=== PATIENT | female | born 1985 | race Hispanic/Latino ===

== ENCOUNTER 2018-03-17 11:47 | Inpatient (IN) | payer SELFPAY ==
[~2018-03-17] VITALS: Ht 149.9 cm; Wt 56.3 kg
[2018-03-17] MEDS ORDERED: SODIUM CHLORIDE 0.9% 1000ML 1,000 ML IV SCH (12:30)
[2018-03-17] MEDS ORDERED: PIPER-TAZ 3.375 GM 50 ML IV ONE (13:00)
[2018-03-17] MEDS: VANCOMYCIN 250MG/5ML ORAL SOLN PO ONE ×2 (14:12→15:54)
--- NOTE | 2018-03-17 15:15 | NUR ---
Pt RLE dressed with a gauze dressing. Copious purulent drainage is coming from the wound. The wound is circular and approximately 1.25 cm in diameter. The wound goes into the deep tissues. Pt is ambulatory to the for a UPT and then to CT scan via W/C. Dressing reinforced while in the CT room.
--- NOTE | 2018-03-17 15:58 | NUR ---
Pt returned to RM3. Dressing is intact. No acute distress is noted. The pt MONTANO, no c/o CP, SOB, dizziness, or nausea.
[2018-03-17] MEDS ORDERED: ONDANSETRON HCL INJ 2MG/ML 2ML 2 MG/ML VIAL IV PRN (16:15)
--- NOTE | 2018-03-17 17:29 | Diagnostic Imaging Report ---
CT Lower extremity right with contrast, with reconstructions. CPT code: 25995, 95757 Indications: Calcinosis cutis, dermatomyositis, abscess. Technique: Contiguous 5 mm thickness axial images were obtained through the right lower extremity from the mid thigh to the distal tibia/fibula diaphyses. 100 cc of intravenous nonionic contrast was administered. Rationale for reconstructions: Coronal and sagittal reconstructions were generated to better facilitate assessment of alignment and extent of fracture lines. RADIATION DOSE: Total DLP: 301 mGy*cm Estimated effective dose: (DLP x 0.015 x size factor) mSv CTDIvol has been reviewed. It is below the limits set by the Radiation Protocol Committee (RPC). Dose reduction techniques used: Automated exposure control, adjustment of the mAs and/or kVp according to patient size, standardized low-dose protocol, and/or iterative reconstruction technique. Comparison: CT left lower extremity 12/21/2016, CT pelvis 07/05 2017, CT pelvis 08/02/2017. MRI left hip 08/11/2017, MRI left hip 04/17/2017. These were performed at [facility]. Findings: [employer] Salesperson image demonstrates extensive soft tissue calcifications throughout the lower extremities with diffuse enlargement of the right lower extremity from the proximal thigh to the proximal lower extremity. Cross-sectional imaging demonstrates extensive subcutaneous calcifications and calcifications of the fascial layers particularly in the posterior thigh. There is no evidence of cellulitis. The posterior aspect of the lower extremity is most severely affected, lateral greater than medial. There is one subcutaneous hyperattenuating collection in the lateral lower extremity at the level of the proximal fibula measuring 2.7 x 1.4 cm containing a droplet of air. Adjacent to this is high attenuating material outside the skin extending onto the CT table suggestive of extruded contents. This particular collection does not appear to be connected to any other of the fascial normal calcifications. There are no other collections that contain air. Vascular structures poorly visualized due to the extensive calcifications in the timing of the contrast bolus. Bones: No fracture or focal osseous lesion. IMPRESSION: 1. Air-containing collection measuring 2.7 cm extending to the skin in the lateral right lower extremity suggestive of abscess. 2. Extensive subcutaneous and fascial soft tissue calcifications consistent with dermatomyositis. Signed by: Dr. Kriss Britton MD on 03/17/2018 5:25 PM
--- NOTE | 2018-03-17 18:40 | NUR ---
pt alert resp even and unlabored at this time no distress noted, pt arrived to unit via stretcher, pt oriented to room and call light, pt bed in lowest position, bed rails up X2, pt able to make need known, call light in reach,. family member at bedside.
[2018-03-17 19:00] VITALS: BP 105/55
[2018-03-17] MEDS: SODIUM CHLORIDE 0.9% 1000ML 1,000 ML IV SCH (19:37)
[2018-03-17] MEDS: PIPER-TAZ 3.375 GM 50 ML IV SCH (19:37)
--- NOTE | 2018-03-17 19:50 | NUR ---
REPORT GIVEN TO ONCOMING NURSE, FOR CONTINUED CARE.
--- NOTE | 2018-03-17 20:00 | NUR ---
Dressing to Right leg soaked with drainage. Dressing changed.
--- NOTE | 2018-03-17 21:19 | NUR ---
Patient had a fever of 101 F and increased Heart rate of [address] Garibay notified. New orders received.
--- NOTE | 2018-03-17 21:19 | NUR ---
Dr. Garibay notified that patient will be NPO after midnight and stated patient can still take oral medication with small sips of water.
--- NOTE | 2018-03-17 21:25 | NUR ---
Consult with Dr. Beck called thru the spray drier operator.
[2018-03-17] MEDS ORDERED: MORPHINE SULFATE INJ 4 MG/ML INJ 1ML IV PRN (21:30)
[2018-03-17] MEDS ORDERED: HYDROCODONE/APAP 5MG-325MG TAB PO PRN (21:30)
[2018-03-17] MEDS ORDERED: VANCOMYCIN 1GM/NS 250 ML 250 ML IV SCH ×2 (21:30→22:00)
--- NOTE | 2018-03-17 22:01 | NUR ---
no answer from dr. zafar at this time
[2018-03-17] MEDS: ACETAMINOPHEN 325 MG TAB PO PRN (22:07)
--- NOTE | 2018-03-17 22:40 | NUR ---
Patient complaint of intching and sob 30 mins after vanco started. Vanco stopped. oxygen 2L/min started. Dr Garibay notified new orders received.
[2018-03-17] MEDS ORDERED: DIPHENHYDRAMINE HCL 25 MG CAP PO ONE (23:00)
[2018-03-17] MEDS ORDERED: PREDNISONE 20 MG TAB PO ONE (23:00)
--- NOTE | 2018-03-17 23:15 | NUR ---
ITCHING RELIEVED, NO SOB. PATIENT REFUSED TO CONTINUE OXYGEN. NO COMPLAINTS AT THIS TIME.
[2018-03-18] VITALS (7 sets, daily range): BP systolic 87–105; BP diastolic 45–59
[2018-03-18] MEDS: SODIUM CHLORIDE 0.9% 1000ML 1,000 ML IV SCH ×3 (00:10→16:58)
--- NOTE | 2018-03-18 00:10 | NUR ---
PATIENT IS AWARE OF NPO DIET AFTER MIDNIGHT.
[2018-03-18] MEDS: PIPER-TAZ 3.375 GM 50 ML IV SCH ×4 (01:00→18:38)
--- NOTE | 2018-03-18 04:49 | NUR ---
DRESSING TO RIGHT LOWER LEG CHANGED.
[2018-03-18 05:55] LABS: BASOPHILS % 0.3 % (0.0-1.0); HEMATOCRIT 31.5 % (34.2-44.1); HEMOGLOBIN 10.1 g/dL (12.0-16.0); LYMPHOCYTES # (AUTO) 0.5 (1.0-3.2); LYMPHOCYTES % 7.4 % (18.0-39.1); MEAN CORPUSCULAR HGB CONC 32.1 g/dL (31-35); MONOCYTES # (AUTO) 0.4 (0.2-0.8); MONOCYTES % 6.2 % (4.4-11.3); NEUTROPHILS # (AUTO) 5.8 (2.1-6.9); NEUTROPHILS % 85.8 % (38.7-80.0); PLATELET COUNT 144 x10e3/uL (140-360); RED BLOOD COUNT 3.89 x10e6/uL (3.6-5.1); RED CELL DISTRIBUTION WIDTH 16.6 % (11.7-14.4)
[2018-03-18 06:11] LABS: INR 1.28; PROTHROMBIN TIME 17.1 seconds (11.9-14.5)
[2018-03-18 06:12] LABS: PARTIAL THROMBOPLASTIN TIME 53.6 seconds (23.8-35.5)
[2018-03-18 06:22] LABS: ALANINE AMINOTRANSFERASE 27 IU/L (0-55); ALBUMIN 2.8 g/dL (3.5-5.0); ALBUMIN/GLOBULIN RATIO 0.8 (0.8-2.0); ALKALINE PHOSPHATASE 49 IU/L (40-150); ANION GAP 12.4 mmol/L (8-16); BLOOD UREA NITROGEN 9 mg/dL (7-26); BUN/CREATININE RATIO 16 (6-25); CALCIUM 8.4 mg/dL (8.4-10.2); CARBON DIOXIDE 20 mmol/L (22-29); CHLORIDE 107 mmol/L (98-107); CREATININE, SERUM 0.56 mg/dL (0.57-1.11); EST GLOMERULAR FILTRATION RATE > 60 ML/MIN (60-); GLUCOSE 118 mg/dL (74-118); POTASSIUM 3.4 mmol/L (3.5-5.1); SODIUM 136 mmol/L (136-145)
--- NOTE | 2018-03-18 06:51 | NUR ---
CALLED THE APRICOT PACKER FOR THE SECOND TIME FOR CONSULT WITH DR TEJADA
--- NOTE | 2018-03-18 07:04 | NUR ---
pt asleep resp even and unlabored at this time, pt easily aroused, pt has family member at bedside, pt no distress noted, call light in reach.
--- NOTE | 2018-03-18 08:55 | NUR ---
CULTURE OF WOUND SENT TO LAB
[2018-03-18] MEDS: LINEZOLID 600 MG/D5W 300ML 300 ML IV SCH ×2 (09:38→21:27)
--- NOTE | 2018-03-18 10:21 | Consultation ---
DATE OF CONSULTATION: March 18, 2018 REFERRING PHYSICIAN: Dr. Garibay. HISTORY OF PRESENT ILLNESS: Patient is a 32-year-old female who has had chronic swelling and pain in her arms and legs. This is going on for a year. She developed more pain in the right leg with open area of drainage about 3 days ago. She was evaluated with CT scan of lower extremity which revealed extensive calcifications within the subcutaneous tissue and fascia of the right thigh and leg with a small area of fluid collection. PAST MEDICAL HISTORY: As above, otherwise was negative. ALLERGIES: SHE HAS AN ALLERGY TO VANCOMYCIN. PAST SURGICAL HISTORY: No previous surgeries. CURRENT MEDICATIONS: None. FAMILY HISTORY: Noncontributory. SOCIAL HISTORY: The patient is . Does not smoke cigarettes or drink alcohol. REVIEW OF SYSTEMS: As stated above. She has not had any fever. PHYSICAL EXAMINATION GENERAL: The patient is awake and alert. VITAL SIGNS: Temperature of 102.8 last night, afebrile now. HEENT: Unremarkable. Sclerae are nonicteric. NECK: No masses. LUNGS: Equal breath sounds are clear bilaterally. CARDIAC: Regular rate and rhythm with no murmur. ABDOMEN: Soft. No tenderness. EXTREMITIES: The area of calcifications with varicose veins in upper extremities and lower extremities. There is considerable swelling of the right thigh and leg with discoloration of proximal right thigh laterally. There is an open area in the right leg below the knee with some purulent drainage and calcifications palpable. Extensive calcifications are palpable in the subcutaneous tissue. Peripheral pulses are palpable 2+. NEUROLOGIC: Grossly intact. 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 Right now, I recommend continuing the patient on IV antibiotics and plan incision and drainage of the abscess to be done in operating room tomorrow. Proposed surgery was explained to the patient including risks, benefits, and alternatives and she understands. She has had the opportunity to ask questions. Thank you for asking me to see Ms. Stone. Job#: [id number] DARRYL
[2018-03-18 10:48] LABS: BAND NEUTROPHILS % (MANUAL) 36 %; LYMPHOCYTES % (MANUAL) 7 % (19-48); MONOCYTES % (MANUAL) 3 % (3.4-9.0); NEUTROPHILS % (MANUAL) 54 % (40-74)
[2018-03-18 10:49] LABS: PLATELET ESTIMATE ADEQUATE; PLATELET MORPHOLOGY COMMENT NORMAL; RBC MORPHOLOGY COMMENT NORMAL
[2018-03-18] MEDS ORDERED: POTASSIUM CHLORIDE 20 MEQ TAB CR PO ONE ×2 (12:00→17:30)
--- NOTE | 2018-03-18 13:02 | NUR ---
Credit Review Manager met with patient at bedside to discuss plan of care with patient/family. CM/SW role and care transitions discussed. Patient lives: with and 3 children Admit/Transfer: Admit POA/Emergency contact: Chuck Stone Current/Previous Home Health: N/A PCP/Follow-up Care: Does not have PCP Current/Previous DME: N/A Other Services: Employment Status: Unemployed Areas of Concerns: patient is Self Pay- No insurance Referral Needs: Education Needs: IMM/NOGUERA given and signed (if applicable): Goal for discharge: Patient states children are being care for by her while in the hospital. Patient states she was independent of all ADL goal prior to hospital admission. She also states she was in the process of applying for health insurance before she was admitted. She also states her children have CHIP. Patient had a previous admission at [facility] in August and she went into a clinic for follow up.
--- NOTE | 2018-03-18 13:43 | History and Physical ---
CHIEF COMPLAINT: Right lower extremity abscess and pain. HISTORY OF PRESENT ILLNESS: This is a 32-year-old female, who has history of multiple abscesses throughout her body. Of note, has no other past medical issues. She comes in to the outside ER with complaints of right lower extremity leg pain with purulent discharge. The patient reports she has been having this right lower extremity swelling ongoing for the last 3 to 4 days. Then suddenly, she had significant amount of pus that was coming out of the right lower leg. She has had multiple abscesses throughout her body in which she was getting most of her care at [facility]. At that time, she reports that she has been getting several antibiotic treatments in the past and has been discharged on several occasions. She does not know the etiology of her multiple abscesses. The patient was seen and evaluated at bedside on the medical floor, currently doing well with no other issues. ID and General Surgery have been consulted. REVIEW OF SYSTEMS Pertinent positives: Right lower extremity abscess with swelling and fever. Pertinent negative: Denies any chest pain, palpitations, nausea, vomiting, diarrhea, dysuria, hematuria, frequency, urgency, lightheadedness, dizziness, abdominal pain, headache, shortness of breath, cough, congestion, fever, or any other complaints. The rest of 14-point of review of systems have been reviewed with the patient and are negative. ALLERGIES: VANCOMYCIN. HOME MEDICATIONS: None. PAST MEDICAL HISTORY: She has had multiple body abscesses requiring incision and drainage in the past with IV antibiotic. SURGICAL HISTORY: She had multiple abscesses with incision and drainage. FAMILY HISTORY: Hypertension and diabetes. SOCIAL HISTORY: No drugs and no alcohol. She does not smoke. Good social support. She is . PHYSICAL EXAM VITAL SIGNS: Temperature 96.6, but T-Max was 102.8, pulse is 88, respiratory rate is 20, blood pressure is 97/55, pulse ox 94% on room air. GENERAL: Not in acute distress, alert and oriented times 3. Cooperative on examination. HEENT: Head is normocephalic and atraumatic. Eyes: Pupils are equal and reactive to light bilaterally. Extraocular movements are intact bilaterally. NECK: Supple. Good range of motion. Throat with no evidence of any erythema or exudates in the posterior pharynx. Has poor dentition. PULMONARY: Clear to auscultation bilaterally. No wheezing. No rales. No rhonchi. No crackles appreciated. CARDIOVASCULAR: Positive S1, S2. No murmurs, rubs, or gallops appreciated. ABDOMEN: Soft, nondistended, and nontender to palpation. Bowel sounds are present. MUSCULOSKELETAL: Strength is 5/5 throughout. No evidence of any musculoskeletal deficit on examination. No weakness appreciated. NEUROLOGICAL: Cranial nerves II through XII are grossly intact. No evidence of any neurological deficits on exam. SKIN: Intact. Warm to touch. EXTREMITIES: The right lower extremity has an extensive abscess on the lateral aspect of the right leg with purulent discharge as described above. LABORATORY DATA: Lab findings show white count of 6.7, hemoglobin 10.1, hematocrit is 32, and platelets of 144. Coagulation; PT is 17, INR 1.28, PTT 53.6. Chemistry; sodium 136, potassium 3.4, chloride 107, bicarb 20, anion gap of 12, BUN is 9, creatinine is 0.56, and glucose is 180, Calcium is 8.4. Total bilirubin is 1.9. AST 27, ALT 27. Albumin was 2.8. MICROBIOLOGY: Blood and wound cultures are all pending. IMAGING STUDIES: CT of the right lower extremity shows air-containing collection measuring 2.7 cm extending to the skin and to the lateral right lower extremity suggestive of an abscess. There is extensive subcutaneous and soft tissue calcification consistent with dermatomyositis. IMPRESSION 1. Sepsis secondary to right lower extremity cellulitis. 2. History of multiple body abscesses. 3. Hypotension secondary to underlying infection. 4. Hypokalemia. PLAN: At this time, the patient will receive IV antibiotics and ID was consulted. General Surgery consulted and will undergo a debridement on Monday March 19, 2018 by Surgery. She is not currently on any home medications. We will put her on Lovenox for DVT prophylaxis, IV fluids for hydration, as well as pain control. I will go ahead and replace her potassium. Continue with same plan of care with no changes. Job#: [id number] DARRYL
--- NOTE | 2018-03-18 15:28 | Consultation ---
DATE OF CONSULTATION: REASON FOR CONSULTATION: Abscess of the leg. HISTORY OF PRESENT ILLNESS: This patient who is a 32-year-old female who have chronic edema of her leg for the last 3 years according to her. The patient comes in with redness and swelling of her right leg. In the emergency room, she had a CAT scan which showed significant calcification of the right thigh with fluid collection. Patient was admitted. Patient apparently received vancomycin yesterday but she had some shortness of breath due to which it was stopped. The patient currently lying in bed comfortably. I was asked to see her from an infectious disease point of view. They are planning for her to have I and D tomorrow. PAST MEDICAL HISTORY: There is swelling of her leg, she does not know why but apparently it has been for some time. REVIEW OF SYSTEMS: Otherwise; HEENT: Negative. PULMONARY: Negative. CARDIAC: Negative. LABORATORY DATA: White count 6.73, hemoglobin 10, hematocrit 34, platelets 144, sodium 136, potassium 3.4, creatinine 0.56. PHYSICAL EXAMINATION GENERAL: She is currently alert, oriented, does not seem to be in acute distress. VITALS: Stable. Currently afebrile. HEENT: She does not appear icteric. NECK: Supple. CHEST: Clear. HEART: S1, S2. No S3, S4, or murmur. ABDOMEN: Soft. No tenderness. No hepatosplenomegaly. EXTREMITIES: The right leg, there is significant swelling and edema. IMPRESSION: Abscess in the leg, going for incision and drainage. PLAN: Allergic reaction to vancomycin. We will change to Zyvox. With probably underlying lymphedema, obtain CT of abdomen and pelvis. Workup as outpatient. We will follow. Job#: [id number] HERBER
[2018-03-18] MEDS: MIDODRINE 2.5 MG TAB PO SCH ×2 (16:00→16:21)
[2018-03-18] MEDS: ENOXAPARIN SOD INJ 40 MG/0.4 ML SYR SC SCH (16:59)
--- NOTE | 2018-03-18 19:25 | NUR ---
REPORT GIVEN TO ONCOMING NURSE, FOR CONTINUED CARE.
[2018-03-18] MEDS: ACETAMINOPHEN 325 MG TAB PO PRN (22:42)
[2018-03-19] VITALS (9 sets, daily range): BP systolic 98–118; BP diastolic 55–62
[2018-03-19] MEDS: SODIUM CHLORIDE 0.9% 1000ML 1,000 ML IV SCH ×3 (00:10→17:58)
[2018-03-19] MEDS: ACETAMINOPHEN 325 MG TAB PO PRN ×2 (04:40→11:05)
--- NOTE | 2018-03-19 04:45 | NUR ---
DRESSING DONE TO RIGHT LEG.
[2018-03-19 05:07] LABS: BASOPHILS % 0.2 % (0.0-1.0); EOSINOPHILS % 0.2 % (0.0-6.0); HEMATOCRIT 26.5 % (34.2-44.1); HEMOGLOBIN 9.2 g/dL (12.0-16.0); LYMPHOCYTES # (AUTO) 0.8 (1.0-3.2); LYMPHOCYTES % 13.5 % (18.0-39.1); MEAN CORPUSCULAR HEMOGLOBIN 27.1 pg (28-32); MEAN CORPUSCULAR HGB CONC 34.7 g/dL (31-35); MEAN CORPUSCULAR VOLUME 78.2 fL (81-99); MONOCYTES # (AUTO) 0.5 (0.2-0.8); MONOCYTES % 8.5 % (4.4-11.3); NEUTROPHILS # (AUTO) 4.3 (2.1-6.9); NEUTROPHILS % 77.1 % (38.7-80.0); PLATELET COUNT 167 x10e3/uL (140-360); RED BLOOD COUNT 3.39 x10e6/uL (3.6-5.1); RED CELL DISTRIBUTION WIDTH 16.8 % (11.7-14.4)
[2018-03-19 05:24] LABS: ANION GAP 13.2 mmol/L (8-16); BLOOD UREA NITROGEN 7 mg/dL (7-26); BUN/CREATININE RATIO 12 (6-25); CALCIUM 9.2 mg/dL (8.4-10.2); CARBON DIOXIDE 22 mmol/L (22-29); CHLORIDE 103 mmol/L (98-107); EST GLOMERULAR FILTRATION RATE > 60 ML/MIN (60-); GLUCOSE 106 mg/dL (74-118); POTASSIUM 4.2 mmol/L (3.5-5.1); SODIUM 134 mmol/L (136-145)
[2018-03-19] MEDS: PIPER-TAZ 3.375 GM 50 ML IV SCH ×5 (05:54→23:30)
[2018-03-19 06:34] LABS: BAND NEUTROPHILS % (MANUAL) 11 %; LYMPHOCYTES % (MANUAL) 13 % (19-48); MONOCYTES % (MANUAL) 4 % (3.4-9.0); NEUTROPHILS % (MANUAL) 72 % (40-74)
[2018-03-19 06:35] LABS: ANISOCYTOSIS SLIGHT; HYPOCHROMASIA SLIGHT; MICROCYTOSIS SLIGHT; PLATELET ESTIMATE ADEQUATE; PLATELET MORPHOLOGY COMMENT NORMAL; RBC MORPHOLOGY COMMENT ABNORMAL
--- NOTE | 2018-03-19 07:15 | NUR ---
received pt lying in bed with eyes open, TV on. Resp even and unlabored. call light within reach. visitor at bedside.
[2018-03-19] MEDS: LINEZOLID 600 MG/D5W 300ML 300 ML IV SCH ×2 (08:26→20:44)
[2018-03-19] MEDS: MIDODRINE 2.5 MG TAB PO SCH ×3 (09:47→18:01)
--- NOTE | 2018-03-19 11:15 | Progress Note ---
DATE: March 19, 2018 MEDICINE PROGRESS NOTE SUBJECTIVE: The patient is scheduled to have a right lower extremity debridement and abscess clean-out later today by general surgery. She continues to be on IV antibiotics. OBJECTIVE VITAL SIGNS: Temperature 99, pulse 107, respiratory rate 18, blood pressure 103/55. She did have a T-max last night of 101.4. LAB FINDINGS: White count 5.5, hemoglobin 9.2, hematocrit 26.5, platelets 167. Chemistries: Sodium 134, potassium 4.2, chloride 103, bicarb 22, anion gap 13, BUN 7, creatinine 0.7, calcium 9.2. Wound culture is still pending. Blood cultures are no growth to date. PHYSICAL EXAMINATION GENERAL: Not in acute distress, alert and oriented x3. Cooperative on examination. HEENT: Head is normocephalic and atraumatic. Eyes: Pupils are equal and reactive to light bilaterally. Extraocular movements are intact bilaterally. NECK: Supple. Good range of motion. Throat with no evidence of any erythema or exudates in the posterior pharynx. Has poor dentition. PULMONARY: Clear to auscultation bilaterally. No wheezing. No rales. No rhonchi. No crackles appreciated. CARDIOVASCULAR: Positive S1, S2. No murmurs, rubs, or gallops appreciated. ABDOMEN: Soft, nondistended, and nontender to palpation. Bowel sounds are present. MUSCULOSKELETAL: Strength is 5/5 throughout. No evidence of any musculoskeletal deficit on examination. No weakness appreciated. NEUROLOGICAL: Cranial nerves II through XII are grossly intact. No evidence of any neurological deficits on exam. SKIN: Intact. Warm to touch. Good capillary refill. PSYCHIATRIC: Normal affect. EXTREMITIES: No edema. Good range of motion. IMPRESSION 1. Sepsis secondary to right lower extremity cellulitis with abscess. 2. History of multiple body abscesses. 3. Hypotension secondary to underlying infection. 4. Hypokalemia. PLAN: At this time, she is scheduled for debridement of the right lower extremity later today. IV antibiotics per ID. Continue with Lovenox for DVT prophylaxis, IV fluids for hydration, and pain control. Job#: [id number]
[2018-03-19] MEDS ORDERED: LIDOCAINE HCL 1% LOCAL INJ 20 ML VIAL ONE (14:26)
[2018-03-19] MEDS ORDERED: BACITRACIN 50,000 UNIT VIAL ONE (15:11)
--- NOTE | 2018-03-19 16:21 | Operative Report ---
DATE OF PROCEDURE: March 19, 2018 PREOPERATIVE DIAGNOSIS: Complex abscess, right leg. POSTOPERATIVE DIAGNOSIS: Complex abscess, right leg. PROCEDURE PERFORMED: Incision and drainage of complex abscess, right leg. WATCH ADJUSTER: None. ANESTHESIA: General. INDICATIONS AND FINDINGS: Patient is a 32-year-old female with purulent drainage from a right leg wound. Workup revealed extensive calcifications in the subcutaneous tissue around the fascia. At surgery, there was a large amount of milky fluid that was drained from between muscles starting in the leg and extending all the way up into the thigh. Approximately 150 mL of this fluid was drained. There were also extensive calcifications involving all the tissues, one area which was biopsied. TECHNIQUE: After adequate general anesthesia, with the patient in the supine position, the right leg was prepped and draped in a sterile fashion with Betadine solution. There was an open wound with what appeared to be purulent drainage. This extended proximally and distally. Additional purulence was drained. There was a large cavity medially in the leg between muscle bellies, and also it was found this large cavity extended up into the thigh with a total of approximately 150 mL of purulent fluid. This fluid was drained. It appeared to be milky, calcified fluid. There were calcifications in the tissues and a portion of the tissues was excised for biopsy. All the fluid collections were drained. The cavities were irrigated with saline. Hemostasis achieved with electrocautery. Then each large cavity was packed open with 1-inch iodoform gauze and a sterile dressing applied. Patient tolerated the procedure well. Estimated blood loss was 30 mL. There were no complications. All counts were correct. Patient was taken to the recovery room in satisfactory condition. Job#: [id number]
[2018-03-19] MEDS: ENOXAPARIN SOD INJ 40 MG/0.4 ML SYR SC SCH (17:58)
[2018-03-19] MEDS ORDERED: LIDOCAINE HCL 2% LOCAL INJ 5 ML SDV VIAL INJ ONE (18:12)
[2018-03-19] MEDS ORDERED: DEXAMETHASONE SOD PHOS INJ 4 MG/ML VIAL ONE (18:12)
[2018-03-19] MEDS ORDERED: ONDANSETRON HCL INJ 2MG/ML 2ML 2 MG/ML VIAL ONE (18:12)
[2018-03-19] MEDS ORDERED: PROPOFOL IV EMULSION 10 MG/ML 20 ML VIAL ONE (18:12)
[2018-03-19] MEDS ORDERED: DESFLURANE 240 ML BTL INH ONE (18:12)
[2018-03-19] MEDS ORDERED: FENTANYL CITRATE/PF 100MCG/2 ML INJ ONE (18:20)
[2018-03-19] MEDS ORDERED: MIDAZOLAM HCL 2 MG/2 ML VIAL ONE (18:20)
[2018-03-20] MEDS: PIPER-TAZ 3.375 GM 50 ML IV SCH ×4 (05:50→23:32)
[2018-03-20] MEDS: SODIUM CHLORIDE 0.9% 1000ML 1,000 ML IV SCH ×3 (05:51→16:10)
--- NOTE | 2018-03-20 05:51 | NUR ---
dressing to RLE changed
--- NOTE | 2018-03-20 07:00 | NUR ---
RCD PT AT BED PT IS ALERT AND ORIENTED ASSESSMENT DONE PT RESTING ON BED NO SIGNS OF ANY DISTRESS NOTED IV PATENT BED LOW AND LOCKED CALL LIGHT IN REACH
[2018-03-20 07:44] VITALS: BP 90/51
[2018-03-20] MEDS: MIDODRINE 2.5 MG TAB PO SCH ×3 (08:00→16:00)
[2018-03-20 08:30] VITALS: BP 90/51
[2018-03-20] MEDS: LINEZOLID 600 MG/D5W 300ML 300 ML IV SCH ×2 (08:56→20:27)
--- NOTE | 2018-03-20 11:40 | Progress Note ---
DATE: March 20, 2018 MEDICINE PROGRESS NOTE SUBJECTIVE: The patient is doing well today with no complaints. The patient did have incision and drainage and abscess drainage yesterday by general surgery. OBJECTIVE VITAL SIGNS: Temperature 96.7, pulse 81, respiratory rate 18, blood pressure 90/61. She is asymptomatic. Oxygen saturation is 94% on room air. LAB FINDINGS: White count 5.5, hemoglobin 9.2, hematocrit 26.5, platelets 167. Chemistries: Normal. PHYSICAL EXAMINATION GENERAL: Not in acute distress, alert and oriented x3. Cooperative on examination. HEENT: Head is normocephalic and atraumatic. Eyes: Pupils are equal and reactive to light bilaterally. Extraocular movements are intact bilaterally. NECK: Supple. Good range of motion. Throat with no evidence of any erythema or exudates in the posterior pharynx. Has poor dentition. PULMONARY: Clear to auscultation bilaterally. No wheezing. No rales. No rhonchi. No crackles appreciated. CARDIOVASCULAR: Positive S1, S2. No murmurs, rubs, or gallops appreciated. ABDOMEN: Soft, nondistended, and nontender to palpation. Bowel sounds are present. MUSCULOSKELETAL: Strength is 5/5 throughout. No evidence of any musculoskeletal deficit on examination. No weakness appreciated. NEUROLOGICAL: Cranial nerves II through XII are grossly intact. No evidence of any neurological deficits on exam. SKIN: Intact. Warm to touch. Good capillary refill. PSYCHIATRIC: Normal affect. EXTREMITIES: No edema. Good range of motion. IMPRESSION 1. Sepsis secondary to right lower extremity cellulitis with abscess, status post incision and drainage performed on 03/19/2018 by general surgery. 2. Multiple body abscesses. 3. Hypotension, likely to be chronic and asymptomatic. 4. Hypokalemia. PLAN: At this time, get a.m. labs. Continue with IV antibiotics. Daily wound care changes. Monitor wound cultures. Still has significant amount of pus coming out from the wound. Will continue to monitor very closely. Job#: [id number]
[2018-03-20 14:21] VITALS: BP 98/56
--- NOTE | 2018-03-20 15:14 | NUR ---
Met with pt at bedside. Pt lives with her and kids. Emergency contact is Chuck Stone [phone]. Pt states she is independent with needs, Drives. Last hospitalized in August 2017 at [facility]. Was put on Minocycline and was told she would need to take that for life. Pt states she does not have a PCP to follow up. CM gave pt self-pay packet and informed her regarding [facility] and [facility]. Pt states she is familiar with [facility] since she has been there before. Will follow up there if needed. States she signed up for insurance but will not be effective until April. Gave pt business card for any additional questions/concerns. Contact information also written on white board.
[2018-03-20 16:38] VITALS: BP 110/69
[2018-03-20] MEDS: ENOXAPARIN SOD INJ 40 MG/0.4 ML SYR SC SCH (16:52)
--- NOTE | 2018-03-20 17:42 | NUR ---
DRESSING CHANGED ON RT CALF
--- NOTE | 2018-03-20 18:45 | NUR ---
PT RESTING ON BED BED SIDE REPORT GIVEN TO ONCOMING NURSE
[2018-03-20 19:39] VITALS: BP 101/59
[2018-03-21] VITALS (7 sets, daily range): BP systolic 94–116; BP diastolic 54–65
[2018-03-21 05:22] LABS: BASOPHILS % 0.2 % (0.0-1.0); EOSINOPHILS % 0.4 % (0.0-6.0); HEMATOCRIT 23.3 % (34.2-44.1); HEMOGLOBIN 7.4 g/dL (12.0-16.0); LYMPHOCYTES # (AUTO) 1.3 (1.0-3.2); LYMPHOCYTES % 27.9 % (18.0-39.1); MEAN CORPUSCULAR HEMOGLOBIN 26.2 pg (28-32); MEAN CORPUSCULAR HGB CONC 31.8 g/dL (31-35); MONOCYTES # (AUTO) 0.4 (0.2-0.8); NEUTROPHILS % 62.1 % (38.7-80.0); PLATELET COUNT 172 x10e3/uL (140-360); RED BLOOD COUNT 2.82 x10e6/uL (3.6-5.1); RED CELL DISTRIBUTION WIDTH 16.8 % (11.7-14.4)
[2018-03-21 05:23] LABS: MEAN CORPUSCULAR VOLUME 82.6 fL (81-99)
[2018-03-21] MEDS: PIPER-TAZ 3.375 GM 50 ML IV SCH ×4 (05:42→23:29)
--- NOTE | 2018-03-21 05:42 | NUR ---
dressing to RLE changed
[2018-03-21 05:45] LABS: ANION GAP 13.5 mmol/L (8-16); BLOOD UREA NITROGEN 14 mg/dL (7-26); BUN/CREATININE RATIO 26 (6-25); CALCIUM 8.2 mg/dL (8.4-10.2); CARBON DIOXIDE 20 mmol/L (22-29); CHLORIDE 107 mmol/L (98-107); CREATININE, SERUM 0.53 mg/dL (0.57-1.11); EST GLOMERULAR FILTRATION RATE > 60 ML/MIN (60-); GLUCOSE 92 mg/dL (74-118); POTASSIUM 3.5 mmol/L (3.5-5.1); SODIUM 137 mmol/L (136-145)
--- NOTE | 2018-03-21 07:30 | NUR ---
The pt. is in bed awake and alert at bedside rounding. The right leg is dressed and minimal amount of drainage is noted. The pt. reports pain 6/10 and has been medicated.
[2018-03-21] MEDS: MIDODRINE 2.5 MG TAB PO SCH ×3 (08:00→16:00)
[2018-03-21] MEDS: SODIUM CHLORIDE 0.9% 1000ML 1,000 ML IV SCH ×2 (08:10→16:10)
[2018-03-21] MEDS: LINEZOLID 600 MG/D5W 300ML 300 ML IV SCH ×2 (09:00→20:33)
--- NOTE | 2018-03-21 10:20 | NUR ---
Dr. Garibay visited and the plan is for discharge in a couple days with dressing change teaching,antibiotics and pain med. Will relay this to the ID team when they round today.
--- NOTE | 2018-03-21 11:00 | NUR ---
Spoke with nursing, pending wound culture for antibiotic. Nursing will teach pt wound care. Per Dr. Lani dc in 1-2 days.
--- NOTE | 2018-03-21 11:08 | Progress Note ---
DATE: March 21, 2018 MEDICINE PROGRESS NOTE SUBJECTIVE: The patient's wound still has some discharge from it, but it is improving daily. The right lower leg looks to be still swollen, but improving daily. OBJECTIVE VITAL SIGNS: Temperature 98.1, pulse 79, respiratory rate 17, blood pressure 94/54, asymptomatic. Pulse ox is 95% on room air. LAB FINDINGS: White count 4.8, hemoglobin 7.4, hematocrit 23, platelets 172. Chemistries: Sodium 137, potassium 3.5, chloride 107, bicarb 20, anion gap 13, BUN 14, creatinine 0.53, glucose 92, calcium 8.2. MICROBIOLOGY: Blood culture is negative. Wound culture is no growth to date. IMAGING STUDIES: None recent. PHYSICAL EXAMINATION GENERAL: Not in acute distress, alert and oriented x3. Cooperative on examination. HEENT: Head is normocephalic and atraumatic. Eyes: Pupils are equal, round and reactive to light bilaterally. Extraocular movements are intact bilaterally. NECK: Supple. Good range of motion. Throat with no evidence of any erythema or exudates in the posterior pharynx. Has poor dentition. PULMONARY: Clear to auscultation bilaterally. No wheezing. No rales. No rhonchi. No crackles appreciated. CARDIOVASCULAR: Positive S1, S2. No murmurs, rubs, or gallops appreciated. ABDOMEN: Soft, nondistended, and nontender to palpation. Bowel sounds are present. MUSCULOSKELETAL: Strength is 5/5 throughout. No evidence of any musculoskeletal deficit on examination. No weakness appreciated. NEUROLOGICAL: Cranial nerves II through XII are grossly intact. No evidence of any neurological deficits on exam. SKIN: Intact. Warm to touch. Good capillary refill. PSYCHIATRIC: Normal affect and mood. EXTREMITIES: No edema. Good range of motion throughout. IMPRESSION 1. Sepsis secondary to right lower extremity cellulitis with abscess, status post incision and drainage performed on 03/19/2018 by surgery. 2. Multiple body abscesses. 3. Hypotension, likely to be chronic and asymptomatic. 4. Hypokalemia, resolved. PLAN: At this time, I will get a.m. labs. Continues to be on IV antibiotics. Will need to discuss with ID the oral regimen upon discharge. Wound culture shows no growth to date. The patient will likely need to be educated in terms of dressing changes. Hemoglobin was a little bit low today. I am going to repeat the CBC in the morning. If lower, will give blood transfusion. I am working on discharge planning in terms of wound care for home and oral antibiotic therapy. She will also go home with pain control and antibiotic. Job#: [id number]
[2018-03-21] MEDS ORDERED: MORPHINE SULFATE INJ 4 MG/ML INJ 1ML IV PRN (12:15)
[2018-03-21] MEDS: ENOXAPARIN SOD INJ 40 MG/0.4 ML SYR SC SCH (17:00)
[2018-03-21] MEDS: HYDROCODONE/APAP 5MG-325MG TAB PO PRN ×2 (17:30→23:29)
[2018-03-22] VITALS (7 sets, daily range): BP systolic 91–123; BP diastolic 42–67
[2018-03-22 05:24] LABS: BASOPHILS % 0.2 % (0.0-1.0); EOSINOPHILS % 0.4 % (0.0-6.0); HEMATOCRIT 25.9 % (34.2-44.1); HEMOGLOBIN 8.2 g/dL (12.0-16.0); LYMPHOCYTES # (AUTO) 1.1 (1.0-3.2); LYMPHOCYTES % 22.4 % (18.0-39.1); MEAN CORPUSCULAR HEMOGLOBIN 25.9 pg (28-32); MEAN CORPUSCULAR HGB CONC 31.7 g/dL (31-35); MONOCYTES # (AUTO) 0.4 (0.2-0.8); MONOCYTES % 8.7 % (4.4-11.3); NEUTROPHILS # (AUTO) 3.4 (2.1-6.9); NEUTROPHILS % 67.3 % (38.7-80.0); PLATELET COUNT 219 x10e3/uL (140-360); RED BLOOD COUNT 3.16 x10e6/uL (3.6-5.1); RED CELL DISTRIBUTION WIDTH 16.5 % (11.7-14.4)
[2018-03-22] MEDS: PIPER-TAZ 3.375 GM 50 ML IV SCH ×3 (05:35→17:39)
--- NOTE | 2018-03-22 07:10 | NUR ---
The pt ia awake, alert and oriented. Bedrails are up times 2 and the pt. denies pain or discomfort at this time.
[2018-03-22] MEDS: MIDODRINE 2.5 MG TAB PO SCH ×3 (08:00→17:38)
[2018-03-22] MEDS: LINEZOLID 600 MG/D5W 300ML 300 ML IV SCH ×2 (09:36→21:16)
[2018-03-22] MEDS: HYDROCODONE/APAP 5MG-325MG TAB PO PRN ×2 (09:36→21:12)
[2018-03-22] MEDS ORDERED: TYLENOL WITH C1 EACH PO (10:59)
[2018-03-22] MEDS ORDERED: DOXYCYCLINE HY100 MG PO (11:01)
[2018-03-22] MEDS ORDERED: CIPRO500 MG PO (11:04)
--- NOTE | 2018-03-22 12:00 | NUR ---
An order for discharge has been received from Dr. Garibay but the pt. needs to be seen by Dr. Hernandez first.
--- NOTE | 2018-03-22 14:31 | Discharge Summary ---
FINAL DISCHARGE DIAGNOSES 1. Sepsis secondary to right lower extremity cellulitis with abscess, status post incision and drainage performed on March 19, 2018, by General Surgery. 1. Multiple body abscesses. 2. Hypotension, likely to be chronic but she is asymptomatic. 3. Hypokalemia, resolved. CONSULTANTS: General Surgery and Infectious Disease. VITAL SIGNS: Temperature 99.3, pulse 98, respiratory rate is 20, blood pressure 104/52, pulse ox 97% on room air. LABS: White count 5, hemoglobin 8.2, hematocrit is 25, platelets of 219. COAGULATION: PT 17, INR 1.2, PTT 53. CHEMISTRY: Sodium 137, potassium 3.5, chloride 107, bicarb is 20, anion gap of 13, BUN is 14, creatinine is 0.53, calcium is 8.2. MICROBIOLOGY: Blood cultures negative. Wound cultures were negative. DIAGNOSTIC STUDIES: CT of the right lower extremity show evidence of air-containing collection 2.7 cm right lower extremity suggestive of an abscess. 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 HOSPITAL COURSE: A 32-year-old female who has a known history of multiple abscesses comes into the ED with complaints of right lower extremity discharge and a large abscess. Patient was then seen and evaluated at bedside. General Surgery and ID were consulted. Patient underwent a status post incision and drainage and debridement on March 19, 2018, by General Surgery in the OR. Wound cultures were found to be negative. Blood cultures were found to be negative. Patient was on broad-spectrum IV antibiotics. The patient will be discharged on oral doxycycline and Cipro as per ID recommendations. She will be treated for a significant period of time as per their recommendations. Patient was advised to follow up as an outpatient with General Surgery and ID. She has been cleared by all consultants, General Surgery and ID, for discharge home. On the day of discharge, vital signs stable, labs reviewed and stable. Patient seen and evaluated and examined thoroughly on the day of discharge with no new complaints. Patient verbalized understanding and agreed with the plan of care, to follow up accordingly as an outpatient with the primary care physician in one week and ID and General Surgery in one week's time. MEDICATIONS: See med reconciliation form. DISPOSITION: To home. CONDITION: Stable. DIET: Heart-healthy. In the event of any worsening symptoms, the patient advised to come back to the ED for further evaluation. Discharge summary took greater than 35 minutes. DARIUS YOUNGER MD Job#: [id number] EV
[2018-03-22] MEDS: SODIUM CHLORIDE 0.9% 1000ML 1,000 ML IV SCH ×2 (16:10→16:34)
[2018-03-22] MEDS: ENOXAPARIN SOD INJ 40 MG/0.4 ML SYR SC SCH (17:39)
--- NOTE | 2018-03-22 20:24 | NUR ---
RECEIVED PT IN BED AOX3 RT LEG WITH DRESSING .DENIES PAIN .LEFT HAND 20G NS AT 125ML/HR RUNNING .FAMILY AT THE BEDSIDE .CONTINUE TO MONITOR
[2018-03-22] MEDS: ACETAMINOPHEN 325 MG TAB PO PRN (23:45)
[2018-03-23] VITALS (9 sets, daily range): BP systolic 92–118; BP diastolic 50–63
[2018-03-23] MEDS: SODIUM CHLORIDE 0.9% 1000ML 1,000 ML IV SCH ×3 (03:14→16:10)
--- NOTE | 2018-03-23 06:42 | NUR ---
PT C/O PAIN AND GIVEN ORDERED PAIN MEDICATION .CALL LIGHT WITH IN REACH .CONTINUE TO MONITOR
[2018-03-23] MEDS: PIPER-TAZ 3.375 GM 50 ML IV SCH ×4 (06:48→17:34)
--- NOTE | 2018-03-23 07:11 | NUR ---
REPORT GIVEN TO THE ONCOMING NURSE.
--- NOTE | 2018-03-23 07:11 | NUR ---
REPORT GIVEN TO THE ONCOMING NURSE.
[2018-03-23] MEDS: MIDODRINE 2.5 MG TAB PO SCH ×3 (08:00→16:00)
[2018-03-23] MEDS: LINEZOLID 600 MG/D5W 300ML 300 ML IV SCH ×2 (08:37→20:56)
[2018-03-23] MEDS: ACETAMINOPHEN 325 MG TAB PO PRN ×2 (09:58→19:37)
--- NOTE | 2018-03-23 11:41 | NUR ---
WOUND CARE CONSULTATION - INITIAL EVALUATION Patient admitted for Right Calf Ulcer with Purulent Discharge. S/P I&D on 03/19/[address] Hernandez. -Wound Cultures returned negative. -HX: Multiple Abscesses throughout body. - Dr. Hernandez [facility] care. Current orders - Sterile Dry dressing Daily. WBC:7.03 HGB10.7 HCT35 NEUT%48.5 [id number] Wound Care Consulted for Heavily Draining Wound of RLE Calf - Patient sitting at bedside with right leg draining through dressing copious serosanguineous fluid onto a pad on the floor. - Right leg notably larger than left leg. - Patient running fever today. Dr. Hernandez Pending visit prior to discharging patient. - Patient states last dressing change yesterday. -Patient presents with S/P I&D unapproximated incision to right lower Calf. ( 7x4x3.5 cm) Tunneling at 12 o'clock 9 cm toward side of leg to lateral knee. - Multiple Hardened/ indurated areas to right lateral knee area. - Tender to touch but tolerated dressing change well. - Education provided on dressing changes and frequency. IMPRESSION: Right Lateral Leg - S/P I&D. RECOMMENDATION: Right Lateral Leg - - Remove Old Dressing and Packing Daily - Irrigate wound with Normal Saline 50cc Daily - Apply Iodoform Packing Gauze To Tunneled and Undermined areas Lightly Packed ( Approx 9cm @ 12 o'clock and over Entire Wound Bed. - Cover With ABD Pads and Secure with Kerlix Wrap Daily - Reinforce Dressing PRN -by removing ABD Pads and Kerlix Wrap upon Strikethrough. Discharge Planning. - Pending - Patient has had fever in past 24 hrs. PCP aware. Awaiting f/u visit from Dr. Hernandez for further evaluation of surgical site. - Discussed with CM findings. Addendum: 03/23/18 at 1202 by Jose Rico RN Amended: Links added.
--- NOTE | 2018-03-23 12:21 | Progress Note ---
DATE: March 23, 2018 MEDICINE PROGRESS NOTE SUBJECTIVE: The patient was not able to be discharged yesterday. She had developed a fever throughout the day yesterday and was kept overnight. We were also waiting for general surgery to come evaluate the patient to clear early in the morning. This did not occur. OBJECTIVE VITAL SIGNS: T-max was 101.9. Now it is 100.1. Pulse 95, respiratory rate 19, blood pressure 98/54. Pulse ox 95% on room air. LABS: White count 5, hemoglobin 8.2, hematocrit 26, platelets 219. Coagulation: PT 17, INR 1.2, PTT 33. Chemistries are stable. PHYSICAL EXAMINATION GENERAL: Not in acute distress, alert and oriented x3. Cooperative on examination. HEENT: Head is normocephalic and atraumatic. Eyes: Pupils are equal, round and reactive to light bilaterally. Extraocular movements are intact bilaterally. NECK: Supple. Good range of motion. Throat with no evidence of any erythema or exudates in the posterior pharynx. Has poor dentition. PULMONARY: Clear to auscultation bilaterally. No wheezing. No rales. No rhonchi. No crackles appreciated. CARDIOVASCULAR: Positive S1, S2. No murmurs, rubs, or gallops appreciated. ABDOMEN: Soft, nondistended, and nontender to palpation. Bowel sounds are present. MUSCULOSKELETAL: Strength is 5/5 throughout. No evidence of any musculoskeletal deficit on examination. No weakness appreciated. NEUROLOGICAL: Cranial nerves II through XII are grossly intact. No evidence of any neurological deficits on exam. SKIN: Intact. Warm to touch. Good capillary refill. PSYCHIATRIC: Normal affect and mood. EXTREMITIES: No edema. Good range of motion throughout. IMPRESSION 1. Sepsis secondary to right lower extremity cellulitis with abscess, status post incision and drainage performed on 03/19/2018. 2. Multiple body abscesses. 3. Hypotension, chronic. 4. Hypokalemia, resolved. 5. Fever. PLAN: The patient was not discharged yesterday due to many reasons, but now currently has a fever. We are going to continue with IV antibiotics. General surgery and ID are following. We will proceed with same plan of care. The patient will likely be admitted through the weekend. Needs daily wound dressing changes. Job#: [id number]
--- NOTE | 2018-03-23 12:50 | NUR ---
DR PONCE CAME TO SEE THE PATIENT HE SAID NOBODY TALKED HIM ABOUT THE DISCHARGE ON YESTURDAY HE SAID FROM THE SURGICAL POINT PATIENT CAN GO HOME AND FOLLOW UP MY OFFICE AFTER ONE WEEK
--- NOTE | 2018-03-23 12:55 | NUR ---
PAGED AND TALKED DR PORTER REGARDING DR PONCE IS OK TO DISCHARGE HE SAID NO PATIENT HAVE FEVER NO DISCHARGE ON TODAY
--- NOTE | 2018-03-23 14:30 | NUR ---
A/C TO RADIOLOGY PT DID THE CAT SCAN ON 03/[address] TEJADA REGARDING THAT HE SAID CANCEL THE ORDER AND GOT SOME NEW ORDERS
[2018-03-23] MEDS: ENOXAPARIN SOD INJ 40 MG/0.4 ML SYR SC SCH (17:00)
--- NOTE | 2018-03-23 17:48 | Diagnostic Imaging Report ---
Exam: Ultrasound extremity nonvascular History: Right leg soft tissue swelling. Upper right calf region of swelling and possible abscess. Findings: Transverse and sagittal ultrasonographic imaging was obtained of the right leg with grayscale and color Doppler imaging. Imaging was obtained of the left leg for comparison. Right lower leg area of wound demonstrates ill-defined edema. No well-formed fluid collection is seen. Impression: Right lower leg area of wound demonstrates ill-defined edema. No well-formed fluid collection is seen. This could be due to cellulitis. Signed by: Dr. Cameron Lee M.D. on 03/23/2018 5:45 PM
--- NOTE | 2018-03-23 18:54 | NUR ---
PT RESTING ON BED BED SIDE REPORT GIVEN TO ONCOMING NURSE
[2018-03-23] MEDS: HYDROCODONE/APAP 5MG-325MG TAB PO PRN (21:01)
[2018-03-24] VITALS (9 sets, daily range): BP systolic 98–124; BP diastolic 55–75
[2018-03-24] MEDS: SODIUM CHLORIDE 0.9% 1000ML 1,000 ML IV SCH ×2 (00:10→09:10)
[2018-03-24] MEDS: PIPER-TAZ 3.375 GM 50 ML IV SCH ×3 (00:20→12:16)
[2018-03-24 05:24] LABS: BASOPHILS % 0.2 % (0.0-1.0); EOSINOPHILS # (AUTO) 0.1 (0.0-0.4); EOSINOPHILS % 2.7 % (0.0-6.0); HEMATOCRIT 25.7 % (34.2-44.1); LYMPHOCYTES # (AUTO) 0.9 (1.0-3.2); LYMPHOCYTES % 16.7 % (18.0-39.1); MEAN CORPUSCULAR HEMOGLOBIN 26.2 pg (28-32); MEAN CORPUSCULAR HGB CONC 31.1 g/dL (31-35); MEAN CORPUSCULAR VOLUME 84.3 fL (81-99); MONOCYTES # (AUTO) 0.3 (0.2-0.8); MONOCYTES % 5.5 % (4.4-11.3); NEUTROPHILS # (AUTO) 3.9 (2.1-6.9); NEUTROPHILS % 74.1 % (38.7-80.0); PLATELET COUNT 251 x10e3/uL (140-360); RED BLOOD COUNT 3.05 x10e6/uL (3.6-5.1); RED CELL DISTRIBUTION WIDTH 16.1 % (11.7-14.4)
[2018-03-24] MEDS: HYDROCODONE/APAP 5MG-325MG TAB PO PRN ×3 (05:48→21:22)
[2018-03-24 05:54] LABS: ANION GAP 13.1 mmol/L (8-16); BLOOD UREA NITROGEN 5 mg/dL (7-26); BUN/CREATININE RATIO 10 (6-25); CALCIUM 8.9 mg/dL (8.4-10.2); CARBON DIOXIDE 25 mmol/L (22-29); CHLORIDE 104 mmol/L (98-107); CREATININE, SERUM 0.52 mg/dL (0.57-1.11); EST GLOMERULAR FILTRATION RATE > 60 ML/MIN (60-); GLUCOSE 93 mg/dL (74-118); POTASSIUM 4.1 mmol/L (3.5-5.1); SODIUM 138 mmol/L (136-145)
--- NOTE | 2018-03-24 07:00 | NUR ---
rounded with catering convention services manager nurse, patient aware of change and resting comfortably in bed. Call anaya within reach and bed in lowest position.
--- NOTE | 2018-03-24 07:05 | NUR ---
REPORT GIVEN TO ONCOMING NURSE,WALKING ROUNDS MADE.PT RESTING IN BED WITH NO S/S OF DISTRESS.
[2018-03-24] MEDS: MIDODRINE 2.5 MG TAB PO SCH ×3 (09:10→17:40)
[2018-03-24] MEDS: LINEZOLID 600 MG/D5W 300ML 300 ML IV SCH ×2 (09:10→21:22)
--- NOTE | 2018-03-24 11:53 | NUR ---
Nutrition Screen Note RD Recommendation for Physician: Continue diet as ordered Plan of Care: RD following, monitoring for adequacy and tolerance Nutrition reason for involvement: LOS Primary Diagnose(s): right leg abscess Ht:59 in Wt:125.38lbs BMI:25.3 kg/m2 IBW:95lbs RD Assessment:(03/24/2018) Initial encounter with patient. Pt with C/O nausea. Pt is on Zofran. Denies any difficulty chewing or swallowing. Encouraged Po intake Current Diet: Regular diet. Lab results reviewed, MAR reviewed Malnutrition Evaluation (03/24/2018) The patient does not meet criteria for a specified degree of malnutrition at this time. Will re-evaluate at follow-up as appropriate. Diet Education Needs Assessment: Diet education not indicated. Diet Adequacy: Meeting calorie needs, Meeting protein needs, Meeting fluid needs Tolerance: Tolerating PO Nutrition Care Level: Kingsley Taylor RD, LD, CNSC
--- NOTE | 2018-03-24 13:13 | Progress Note ---
DATE: March 24, 2018 MEDICINE PROGRESS NOTE SUBJECTIVE: Patient is still having a fever last night 101. She still has significant drainage on the right lower extremity. OBJECTIVE VITAL SIGNS: Temperature is 97.9, T-max is 101.1, pulse is 54, respiratory rate 18, blood pressure 109/55, pulse ox 95% on room air. LABORATORY FINDINGS: Showed white count 5.2, hemoglobin 8, hematocrit is 25.7, platelets 351. Sodium 130, potassium 4.1, chloride 104, bicarb 35, anion gap 13, BUN . PHYSICAL EXAMINATION GENERAL: Not in acute distress. Alert and oriented x3. Cooperative on examination. HEENT: Head is normocephalic and atraumatic. Eyes: Pupils equal, round and reactive to light bilaterally. Extraocular movements intact bilaterally. NECK: Supple. Good range of motion. Throat with no evidence of any erythema or exudates in the posterior pharynx. Has poor dentition. PULMONARY: Clear to auscultation bilaterally. No wheezing. No rales. No rhonchi. No crackles appreciated. CARDIOVASCULAR: Positive S1 and S2. No murmurs, rubs or gallops appreciated. ABDOMEN: Soft, nondistended and nontender to palpation. Bowel sounds are present. MUSCULOSKELETAL: Strength is 5/5 throughout. No evidence of any musculoskeletal deficit on examination. No weakness appreciated. NEUROLOGICAL: Cranial nerves II through XII are grossly intact. No evidence of any neurological deficits on exam. SKIN: Intact. Warm to touch. Good cap refill. PSYCHIATRIC: Normal affect and mood. EXTREMITIES: No edema. Good range of motion throughout. IMPRESSION 1. Sepsis, secondary to right lower extremity cellulitis wit abscess status post I and D performed on 03/19/2018. 2. Multiple body abscesses. 3. Chronic hypotension. 4. Hypokalemia resolved. 5. Fever, likely due to underlying cellulitis and abscesses. PLAN: The patient is ready for discharge now. We will give her IV antibiotics. Repeat blood cultures. ID and Surgery is following. She seemed that she may need another debridement on the right lower extremity that will be deferred to surgery. I would like to continue same kind of treatment and should be admitted through the weekend. Job#: [id number] VIJAYA
[2018-03-24] MEDS: ENOXAPARIN SOD INJ 40 MG/0.4 ML SYR SC SCH (17:40)
--- NOTE | 2018-03-24 19:15 | NUR ---
rounded with night assistant nurse, patient aware of change, call anaya within reach and bed in lowest position.
[2018-03-24] MEDS: ACETAMINOPHEN 325 MG TAB PO PRN (19:46)
[2018-03-25] VITALS (8 sets, daily range): BP systolic 96–130; BP diastolic 52–69
[2018-03-25] MEDS: SODIUM CHLORIDE 0.9% 1000ML 1,000 ML IV SCH ×3 (00:10→10:02)
[2018-03-25] MEDS: HYDROCODONE/APAP 5MG-325MG TAB PO PRN ×2 (04:30→18:03)
--- NOTE | 2018-03-25 07:05 | NUR ---
REPORT GIVEN TO ONCOMING NURSE.WALKING ROUNDS MADE.PT RESTING IN BED WITH NO S/S OF DISTRESS.
[2018-03-25] MEDS: MIDODRINE 2.5 MG TAB PO SCH (08:00)
[2018-03-25] MEDS: LINEZOLID 600 MG/D5W 300ML 300 ML IV SCH (08:45)
--- NOTE | 2018-03-25 10:13 | NUR ---
RLE DRESSING CHANGED AT THIS TIME. DRESSING REMOVED AND FLUSHED WITH NS, REPACKED WITH IODAFORM, COVERED WITH 4X4 SHERRIE AND THEN ABD AND WRAPPED WITH SHERRIE BANDAGE.
[2018-03-25] MEDS: CEFTRIAXONE SOD 1 GM/NS 50 ML 50 ML IV SCH (11:00)
[2018-03-25] MEDS: DOXYCYCLINE HYCLATE TABLET 100 MG TAB PO SCH ×2 (11:00→16:40)
[2018-03-25] MEDS ORDERED: IBUPROFEN 600 MG TAB PO PRN (11:45)
--- NOTE | 2018-03-25 12:35 | Progress Note ---
DATE: March 25, 2018 MEDICINE PROGRESS NOTE SUBJECTIVE: Patient still has a fever overnight. Her packing and dressing still has some discharge, but according to the patient, it is improving. OBJECTIVE VITAL SIGNS: Temperature is 97.9, T-max 101.3, pulse 86, respiratory rate is 18, blood pressure 101/63, pulse ox 95% on room air. GENERAL: Not in acute distress. Alert and oriented x3. Cooperative on examination. HEENT: Head is normocephalic and atraumatic. Eyes: Pupils equal, round and reactive to light bilaterally. Extraocular movements intact bilaterally. Throat with no evidence of any erythema or exudates in the posterior pharynx. Has poor dentition. NECK: Supple. Good range of motion. PULMONARY: Clear to auscultation bilaterally. No wheezing. No rales. No rhonchi. No crackles appreciated. CARDIOVASCULAR: Positive S1 and S2. No murmurs, rubs, or gallops appreciated. ABDOMEN: Soft, nondistended, and nontender to palpation. Bowel sounds are present. EXTREMITIES: Right lower extremity in packing due to abscess formation, status post incision and drainage. LAB FINDINGS: Show white count is 5.2, hemoglobin 8, hematocrit is 25.7, platelets of 251. Coagulation: PT 17, INR 1.2, PTT 53.6. Chemistry: Sodium 138, potassium 4.1, chloride 104, bicarb 35, anion gap of 13, BUN is 5, creatinine is 0.52, calcium is 8.9. MICROBIOLOGY: Blood cultures were negative. Wound cultures are negative. IMPRESSION 1. Sepsis secondary to right lower extremity cellulitis with abscess, status post incision and drainage performed on March 19, 2018. 2. History of multiple body abscesses. 3. Chronic hypotension. 4. Hypokalemia, resolved. 5. Fever, likely due to underlying cellulitis and abscesses. PLAN: At this time, she still had a fever last night. We are going to continue with IV antibiotics. Repeat blood cultures found no growth. Daily wound care. ID and surgery are following closely. She likely needs another washout of the right lower extremity, but this will be deferred to surgery. Job#: [id number] JALEN
--- NOTE | 2018-03-25 19:11 | NUR ---
PT RESTING ON BED BED SIDE REPORT GIVEN TO ONCOMING NURSE
--- NOTE | 2018-03-25 19:14 | NUR ---
PT IS RESTING IN BED. NO RESPIRATORY DISTRESS NOTED. BED IN THE LOWEST POSITION, LOCKED, AND CALL LIGHT WITHIN REACH. WILL CONTINUE TO MONITOR.
[2018-03-26] MEDS: ACETAMINOPHEN 325 MG TAB PO PRN (00:12)
[2018-03-26 01:18] VITALS: BP 98/49
[2018-03-26] MEDS: HYDROCODONE/APAP 5MG-325MG TAB PO PRN ×2 (03:31→11:35)
[2018-03-26] MEDS: SODIUM CHLORIDE 0.9% 1000ML 1,000 ML IV SCH (03:49)
[2018-03-26 05:41] LABS: BASOPHILS % 0.3 % (0.0-1.0); EOSINOPHILS # (AUTO) 0.2 (0.0-0.4); EOSINOPHILS % 2.6 % (0.0-6.0); HEMATOCRIT 26.7 % (34.2-44.1); HEMOGLOBIN 8.4 g/dL (12.0-16.0); LYMPHOCYTES # (AUTO) 1.1 (1.0-3.2); LYMPHOCYTES % 16.1 % (18.0-39.1); MEAN CORPUSCULAR HEMOGLOBIN 26.3 pg (28-32); MEAN CORPUSCULAR HGB CONC 31.5 g/dL (31-35); MEAN CORPUSCULAR VOLUME 83.4 fL (81-99); MONOCYTES # (AUTO) 0.4 (0.2-0.8); MONOCYTES % 5.5 % (4.4-11.3); NEUTROPHILS # (AUTO) 4.9 (2.1-6.9); NEUTROPHILS % 74.9 % (38.7-80.0); PLATELET COUNT 300 x10e3/uL (140-360); RED CELL DISTRIBUTION WIDTH 15.7 % (11.7-14.4)
[2018-03-26 06:24] VITALS: BP 117/56
[2018-03-26 06:24] LABS: BLOOD UREA NITROGEN < 5 mg/dL (7-26); CARBON DIOXIDE 24 mmol/L (22-29); CHLORIDE 101 mmol/L (98-107); EST GLOMERULAR FILTRATION RATE > 60 ML/MIN (60-); GLUCOSE 88 mg/dL (74-118); SODIUM 136 mmol/L (136-145)
[2018-03-26 06:25] LABS: BUN/CREATININE RATIO 10 (6-25)
--- NOTE | 2018-03-26 07:05 | NUR ---
Received patient mid fowlers position, side rails upx2, call light within reach. AAOX4 to time, person, place, situation. Respirations even and unlabored. Dressing to RLE clean, dry, and intact. Instructed patient to use call light for assistance.
[2018-03-26 08:00] VITALS: BP 107/64
[2018-03-26 08:30] VITALS: BP 107/64
[2018-03-26] MEDS ORDERED: CEFTRIAXONE SOD 1 GM VIAL IV SCH (09:00)
[2018-03-26] MEDS: CEFTRIAXONE SOD 1 GM/NS 50 ML 50 ML IV SCH (09:34)
[2018-03-26] MEDS: DOXYCYCLINE HYCLATE TABLET 100 MG TAB PO SCH (09:34)
--- NOTE | 2018-03-26 10:01 | Diagnostic Imaging Report ---
CT right lower extremity with contrast Indications: Calcinosis cutis, dermatomyositis, follow-up abscess. Comparison: CT right lower extremity with contrast 03/17/2018. Technique: Contiguous axial images were obtained through the right lower extremity from the mid thigh to the distal tibia/fibula diaphyses. 100 cc of Isovue 370 contrast was administered. Coronal and sagittal reconstructions were obtained. Dose modulation, iterative reconstruction, and/or weight based adjustment of the mA/kV was utilized to reduce the radiation dose to as low as reasonably achievable. RADIATION DOSE: Total DLP: 461.2 mGy*cm CTDIvol has been reviewed. It is below the limits set by the Radiation Protocol Committee (RPC). Findings: Bowling Ball Grader And Marker image demonstrates extensive soft tissue calcifications throughout the bilateral lower extremities, right greater than left, with diffuse enlargement of the right lower extremity from the proximal thigh to the proximal lower extremity. There have been interval postsurgical changes related to drainage of previously noted collection with a soft tissue defect along the right lateral knee soft tissues and subcutaneous and fascial gas along the lateral and posterior thigh. No evidence of residual fluid collection containing gas. As before, there are extensive subcutaneous and fascial calcifications, most pronounced in the posterior thigh lateral greater than medial. No evidence of cellulitis. Vascular structures are again poorly visualized due to extensive calcifications and contrast bolus timing. Bones: No fracture or focal osseous lesion. IMPRESSION: Interval drainage of right lateral knee and thigh/posterior thigh collection. No evidence of residual gas containing collection. Extensive subcutaneous and fascial soft tissue calcifications consistent with dermatomyositis. Signed by: Dr. Alberto Gonsalves MD on 03/26/2018 9:58 AM
--- NOTE | 2018-03-26 10:20 | NUR ---
aware of CT results of RLE. No new orders
--- NOTE | 2018-03-26 10:38 | Progress Note ---
DATE: March 26, 2018 MEDICINE PROGRESS NOTE SUBJECTIVE: Patient is doing well today. She still has a fever with T-max 101.3. CT scan of the right lower extremity has been ordered. OBJECTIVE VITAL SIGNS: Temperature is 98.2, T-max 101.3, pulse 80, respiratory rate 18, blood pressure 107/64, pulse ox 95% on room air. LAB FINDINGS: White count 6.5, hemoglobin 8.4, hematocrit 26, platelets 300. Chemistries: Sodium 133, potassium 4, chloride 101, bicarb 24, anion gap 15, BUN less than 5, creatinine 0.5, calcium 9. MICROBIOLOGY: Repeat blood culture shows no growth to date. PHYSICAL EXAMINATION GENERAL: Not in acute distress. Alert and oriented x3. Cooperative on examination. HEENT: Head is normocephalic and atraumatic. Eyes: Pupils are equal, round and reactive to light bilaterally. Extraocular movements intact bilaterally. NECK: Supple. Good range of motion. Throat with no evidence of any erythema or exudates in the posterior pharynx. Has poor dentition. PULMONARY: Clear to auscultation bilaterally. No wheezing. No rales. No rhonchi. No crackles appreciated. CARDIOVASCULAR: Positive S1 and S2. No murmurs, rubs, or gallops appreciated. ABDOMEN: Soft, nondistended, and nontender to palpation. Bowel sounds are present. MUSCULOSKELETAL: Strength is 5/5 throughout. No evidence of any musculoskeletal deficit on examination. No weakness appreciated. NEUROLOGIC: Cranial nerves II through XII are grossly intact. No evidence of any neurologic deficit on exam. SKIN: Intact. Warm to touch. Good cap refill. PSYCHIATRIC: Normal affect and mood. EXTREMITIES: No edema. Good range of motion throughout. IMPRESSION 1. Sepsis secondary to right lower extremity cellulitis with abscess, status post incision and drainage performed on 03/19/2018. 2. History of multiple body abscesses. 3. Chronic hypotension. 4. Hypokalemia, resolved. 5. Fever. She continues to have fever, likely due to abscess and cellulitis. PLAN: Discontinue right lower extremity orders. IV antibiotics. Blood cultures showed no growth. ID and general surgery are following. Pain control. Will likely need to have additional I and D but will await getting the CT first to determine further action. Job#: [id number] JESUS
--- NOTE | 2018-03-26 11:15 | NUR ---
Wound care done as ordered. Wound care teaching done. Patient voiced understanding and returned demonstration.
--- NOTE | 2018-03-26 11:58 | NUR ---
left hand IV discontinued. No signs of infiltration noted. 2x2 dressing and tape placed. Taken by PCT via wheelchair to personal car. Accompanied by . AAOX4 to time, person, place, situation. Respirations even and unlabored. Dressing to Right lower extremity clean, dry, and intact. Discharge instructions, rx, and all personal belongings taken with patient.
--- NOTE | 2018-03-26 12:08 | NUR ---
GAVE PACKET OF INFORMATION WITH COMMUNITY RESOURCES FOR ASSISTANCE WITH LOW TO NO INCOME TO PATIENT. RESOURCES THAT PATIENT MAY BE ABLE TO FOLLOW UP UPON DISCHARGE. PT EDUCATED ON EACH RESOURCE AND UNDERSTANDING HOW TO FOLLOW UP TO SEE IF QUALIFIED FOR EACH RESOURCE.
[2018-03-26 12:45] VITALS: BP 112/70
--- NOTE | 2018-03-26 14:07 | Discharge Summary ---
FINAL DISCHARGE DIAGNOSES 1. Sepsis secondary to right lower extremity cellulitis with abscess, status post incision and drainage performed on March 19, 2018. 2. History of multiple body abscesses. 3. Chronic hypertension. 4. Hypokalemia, resolved. 5. Fever, resolved. CONSULTANTS: ID and general surgery. VITAL SIGNS: Temperature is 98.2, pulse 88, respiratory rate is 18, blood pressure 107/64, pulse ox 95% on room air. LABS: White count is 6.5, hemoglobin 8.4, hematocrit 26.7, and platelets of 300,000. Coagulation: PT 17, INR 1.28 and PTT 53.6. MICROBIOLOGY: Blood cultures times 4 were negative. Gram stain cultures were all negative. IMAGING STUDIES: Lower extremity CT on admission showed some soft tissue swelling, air-containing collection concerning for abscess. Lower extremity ultrasound showed right lower extremity ill-defined edema concerning for an underlying collection. Repeat CT performed on March 26, 2018, showed no evidence of any collection. There is some soft tissue swelling. HOSPITAL COURSE: A 32-year-old female who presented to an outside ER with complaints of right lower extremity swelling and pain. CT imaging was concerning for an abscess in which general surgery and ID were consulted. Patient underwent a status post incision and drainage on March 19, 2018, by general surgery. Wound cultures were collected and showed no growth. Blood cultures were negative. Patient was on broad spectrum IV antibiotics. Per ID, they recommended doxycycline and Cipro for 4 weeks total. Patient advised to follow with ID and general surgery in about 1 week's time. Patient has been cleared by both general surgery and ID for discharge home. Discharge vital signs stable. Labs remained stable. Patient was seen and evaluated and examined thoroughly on the day of discharge with no other complaints. Thank you for involving us in the care of this patient. The patient will keep the followup appointment as an outpatient with primary care physician, ID and general surgery in 1 week's time. MEDICATIONS: See med reconciliation form. 1. Doxycycline 100 mg p.o. b.i.d., 6 quantity. 2. Cipro 500 mg p.o. b.i.d., 6 quantity. 3. Also, given Tylenol with Codeine No. 3 one tablet every 6 hours as needed for pain, 20 tabs given. CONDITION: Stable. DIET: Heart-healthy. In the event of any worsening symptoms, the patient was advised to come back to the ED for further evaluation. Discharge summary took greater than 35 minutes. DARIUS YOUNGER MD Job#: [id number] [place]
[2018-03-26] MEDS ORDERED: SODIUM CHLORIDE 0.9% 50ML 50 ML ONE (14:45)
[2018-03-26] MEDS ORDERED: IOPAMIDOL 370 MG/ML 200 ML INFUS..BTL INJ ONE (14:46)
== END 2018-03-26 11:58 | disposition home or self-care (01) | DRG 872 ==
LOC: FSED 11:47 → ERHOLD 15:03 → MED/SURG2 18:40 → OBSVTOIN 03-18 11:54
PROVIDERS: ADMIT Internal Medicine; ATTEND Internal Medicine
PROC: 0JBM0ZX Excision of Left Upper Leg Subcutaneous Tissue and Fascia, Open Approach, Diagnostic (ICD-10-PCS; principal; 2018-03-19 14:00)
DX: A41.9 Sepsis, unspecified organism (principal); L02.818 Cutaneous abscess of other sites; L03.115 Cellulitis of right lower limb; E87.6 Hypokalemia; I95.89 Other hypotension; M61.1 Myositis ossificans progressiva; I10 Essential (primary) hypertension; R19.7 Diarrhea, unspecified
CPT/HCPCS: 36415; 76882; 80048; 80053; 82948; 85025; 85610; 85730; 87040; 87071; 87075; 87205; 88304; 96361; 99284; G0378; J0696; J1100; J1650; J2001; J2020; J2250; J2405; J2543; J3370; J7030; J7512; Q9967